=== PATIENT | male | born 1995 | race Caucasian/White ===

== ENCOUNTER 2018-02-03 13:02 | Emergency (ER) | payer MEDICAID, OTHER ==
[~2018-02-03] VITALS: Ht 180.3 cm; Wt 79.4 kg
[2018-02-03 13:15] VITALS: BP 133/80
== END 2018-02-03 14:10 | disposition home or self-care (01) ==
LOC: ER 13:07
DX: M24.411 Recurrent dislocation, right shoulder (principal)
CPT/HCPCS: 23650; 73020

== ENCOUNTER 2018-08-31 16:45 | Emergency (ER) | payer MEDICAID ==
[~2018-08-31] VITALS: Ht 177.8 cm; Wt 87.1 kg
[2018-08-31 16:56] VITALS: BP 154/96
== END 2018-08-31 20:16 | disposition home or self-care (01) ==
LOC: ER 16:47
DX: Z02.89 Encounter for other administrative examinations (principal); M25.511 Pain in right shoulder

== ENCOUNTER 2023-04-29 17:09 | Emergency (ER) | payer MEDICAID ==
[~2023-04-29] VITALS: Ht 177.8 cm; Wt 125.1 kg
[2023-04-29 18:39] VITALS: BP 143/91; PULSE 68; RESP 20; TEMP 97.8; O2SAT 95
[2023-04-29] MEDS ORDERED: KETOROLAC TROMETH 60MG/2ML VIAL IM ONE (19:15)
[2023-04-29] MEDS ORDERED: CYCL-837 PO (19:16)
[2023-04-29] MEDS ORDERED: IBUP-1456 PO (19:16)
== END 2023-04-29 20:33 | disposition home or self-care (01) ==
LOC: ER 17:09
DX: M54.42 Lumbago with sciatica, left side (principal)
CPT/HCPCS: 96372; 99283; J1885